=== PATIENT | male | born 1965 | race Caucasian/White ===

== ENCOUNTER 2019-07-11 09:46 | Outpatient (CLI) | payer OTHER ==
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
== END 2019-07-11 09:47 | disposition home or self-care (01) ==
LOC: SCSRAD 09:46
PROVIDERS: ATTEND Psychiatry & Neurology Neurology
DX: Z18.10 Retained metal fragments, unspecified (principal); I67.82 Cerebral ischemia
CPT/HCPCS: 72110

== ENCOUNTER 2019-07-25 10:54 | Outpatient (CLI) | payer OTHER ==
--- NOTE | 2019-07-25 11:40 | RAD ---
Exam: Chest 2 views HISTORY:Foreign body of soft tissue Comparison: None FINDINGS: Lungs: No masses or consolidation. Cardiac silhouette:Cardiac silhouette is at upper limits of normal in size. Pulmonary vessels: Normal Pleural Spaces: Clear Pneumothorax: None Osseous abnormalities: None of acuity. IMPRESSION: No radiopaque foreign body.
--- NOTE | 2019-07-25 12:14 | MRI ---
MRI Brain WO Con: 07/25/2019 12:00 AM CLINICAL HISTORY: Cerebral ischemia. COMPARISON: None. FINDINGS: Extra axial spaces: Normal in size and morphology for the patient's age. Acute infarction: None. Ventricular system: Mild ex vacuo dilatation. Basal cisterns: Normal. Cerebral parenchyma: There is microvascular ischemic disease with superimposed, multifocal encephalom alacia most pronounced at the posterior right cerebral hemisphere. Multifocal chronic cavitary lacunar infarctions are also present, bilaterally Midline shift: None. Cerebellum: Remote lacunar infarction of left cerebellar hemisphere is present Brainstem: Pontine gliosis. Paranasal sinuses:Clear IMPRESSION: No acute intracranial abnormality. Multifocal chronic ischemic disease with associated ex vacuo dilatation of ventricular system.
== END 2019-07-25 10:55 | disposition home or self-care (01) ==
LOC: MRI 10:54 → RAD 10:55
PROVIDERS: ATTEND Psychiatry & Neurology Neurology
DX: I67.82 Cerebral ischemia (principal); M79.5 Residual foreign body in soft tissue; G93.89 Other specified disorders of brain
CPT/HCPCS: 70551; 71046